=== PATIENT | female | born 1995 | race Caucasian/White ===

== ENCOUNTER → 2017-04-28 | Outpatient (CLI) | payer BC ==
[2016-08-16 02:15] VITALS: BP 105/68
--- NOTE | 2017-04-28 13:13 | MRI ---
MRI BRAIN WITHOUT CONTRAST CLINICAL HISTORY: 22-year-old female with bilateral migraine headaches, worse in the evenings. COMPARISON: CT head 02/25/2016. TECHNIQUE: Multiplanar, multisequence MR images of the brain were obtained without contrast. FINDINGS: There is no evidence of diffusion restriction. The craniocervical junction is normal. Pitui tary and optic nerve complex are normal. Conflict T2 FLAIR signal hyperintensities are present within the periventricular and supraventricular white matter, predominantly posteriorly, that are nonspecif ic in appearance but most likely to represent sequelae from longstanding migraine headaches. Normal s ignal characteristics and morphology are demonstrated within the cerebral cortex, corpus callosum, de ep cooper nuclei, brainstem and cerebellum. The major vascular flow voids, to include the dural venous sinuses, are intact. The ventricular system is normal in size and morphology. The basilar cisterns ar e normal. The orbits and globes are within normal limits. The paranasal sinuses, tympanic cavities and mastoids are clear. IMPRESSION: 1. Nonspecific T2 FLAIR white matter hyperintense foci in the periventricular/supraventricular distri bution, probably posteriorly, that most likely represent sequelae from chronic migraine headaches. Th wil are otherwise nonspecific multiple etiologies to include demyelinating process and chronic ischem ic disease. Correlate clinically. 2. No acute ischemic or hemorrhagic insult. Reported By:
== END ==
LOC: RAD 12:00
PROVIDERS: ATTEND Psychiatry & Neurology Neurology
DX: R51 Headache (principal)
CPT/HCPCS: 70551